=== PATIENT | male | born 1980 | race Caucasian/White ===

== ENCOUNTER 2016-12-21 11:01 | Emergency (ER) | payer SELFPAY | END 2016-12-21 15:01 | disposition home or self-care (01) | LOC: D.ER 11:01 | DX: S93.401A Sprain of unspecified ligament of right ankle, initial encounter (principal); Y93.79 Activity, other specified sports and athletics; Y92.019 Unspecified place in single-family (private) house as the place of occurrence of the external cause ==

== ENCOUNTER → 2017-02-18 14:01 | Outpatient (CLI) | payer MEDICAID | END | disposition home or self-care (01) | LOC: D.MRI 02-15 10:30 | DX: S93.411A Sprain of calcaneofibular ligament of right ankle, initial encounter (principal) ==

== ENCOUNTER 2017-09-04 21:56 | Emergency (ER) | payer MEDICAID | END 2017-09-04 23:14 | disposition home or self-care (01) | LOC: D.ER 21:56 | DX: S93.401A Sprain of unspecified ligament of right ankle, initial encounter (principal); W11.XXXA Fall on and from ladder, initial encounter; Y93.89 Activity, other specified; Y92.029 Unspecified place in mobile home as the place of occurrence of the external cause ==

== ENCOUNTER 2018-10-03 23:42 | Emergency (ER) | payer SELFPAY ==
[~2018-10-03] VITALS: Ht 172.7 cm; Wt 81.8 kg
[2018-10-03 23:44] VITALS: Ht 172.7 cm; Wt 81.8 kg
[2018-10-04 02:24] VITALS: BP 112/70
== END 2018-10-04 02:25 | disposition home or self-care (01) ==
LOC: D.ER 23:42
DX: S01.81XA Laceration without foreign body of other part of head, initial encounter (principal); W18.30XA Fall on same level, unspecified, initial encounter; Y93.89 Activity, other specified; Y92.149 Unspecified place in prison as the place of occurrence of the external cause